=== PATIENT | male | born 1990 | race African-American/Black ===

== ENCOUNTER 2020-06-24 04:35 | Emergency (ER) | payer OTHER ==
[2020-06-24 04:43] VITALS: BP 138/94; PULSE 60; TEMP 98.3; BMI 29.5
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
[2020-06-24] MEDS ORDERED: ACETAMINOPHEN 325 MG TABLET (FP) PO ONE (06:44)
[2020-06-24] MEDS ORDERED: ACETAMINOPHEN 325 MG TABLET (FP) ONE (06:45)
== END 2020-06-24 06:51 | disposition home or self-care (01) ==
LOC: FER 04:35
DX: S09.90XA Unspecified injury of head, initial encounter (principal); S00.83XA Contusion of other part of head, initial encounter; S16.1XXA Strain of muscle, fascia and tendon at neck level, initial encounter
CPT/HCPCS: 70450-TC; 72125-TC; 99284-25

== ENCOUNTER 2021-05-03 06:03 | Emergency (ER) | payer OTHER ==
[2021-05-03 06:37] VITALS: BP 124/78; PULSE 55; TEMP 98.5; BMI 30.4
== END 2021-05-03 07:50 | disposition home or self-care (01) ==
LOC: JER 06:03
DX: S80.912A Unspecified superficial injury of left knee, initial encounter (principal)
CPT/HCPCS: 99283-25